=== PATIENT | male | born 1975 | race Caucasian/White ===

== ENCOUNTER 2021-04-25 09:59 | Outpatient (RCR) | payer BC, MEDICAID, SELFPAY | END 2021-09-26 10:24 | disposition home or self-care (01) | LOC: PT 09:59 | PROVIDERS: Visit Provider Internal Medicine | DX: J44.9 Chronic obstructive pulmonary disease, unspecified (principal) ==

== ENCOUNTER → 2021-08-23 08:04 | Outpatient (CLI) | payer BC, MEDICAID, SELFPAY ==
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
== END ==
PROVIDERS: PCP Nurse Practitioner Family; Visit Provider Nurse Practitioner Family
DX: R10.811 Right upper quadrant abdominal tenderness (principal)
CPT/HCPCS: 76705

== ENCOUNTER → 2021-10-08 10:38 | Outpatient (CLI) | payer BC, MEDICAID, SELFPAY | PROVIDERS: Visit Provider Surgery | DX: Z01.818 Encounter for other preprocedural examination (principal); Z11.52 Encounter for screening for COVID-19 | CPT/HCPCS: C9803; U0003; U0005 ==

== ENCOUNTER → 2021-10-16 10:13 | Outpatient (CLI) | payer BC, MEDICAID, SELFPAY ==
--- NOTE | 2021-10-16 10:16 | NM_ITS ---
PROCEDURE: NM HEPATOBILIARY WO PHARM CLINICAL INDICATION: EPIG PAIN COMPARISON: US US ABDOMEN LIMITED from 08/23/2021 TECHNIQUE: DOSE: 8.37 mCi technetium Choletec. Fatty meal was given with Ensure FINDINGS: Homogeneous activity is present within the hepatic parenchyma. Activity is present in the gallbladder by 5 minutes. Activity is present in the small bowel by 55 minutes. The gallbladder ejection fraction is calculated to be 48 percent. No pain reported with fatty meal. IMPRESSION: Unremarkable hepatic biliary scan with normal gallbladder ejection fraction. Dictated by: Charles Bennett MD 10/17/2021 08:15 Charles Bennett MD in [facility] 10/17/2021 08:15
--- NOTE | 2021-10-16 10:50 | HMH.ITSHM ---
Current Home Medications as stated by this patient Caleb Blanco or international representative. []PRILOSEC SIMBICORT ALBUTEROL
== END ==
PROVIDERS: PCP Nurse Practitioner Family; Visit Provider Surgery
DX: R10.11 Right upper quadrant pain (principal)
CPT/HCPCS: 78226; A9537

== ENCOUNTER 2021-10-30 17:04 | Emergency (ER) | payer OTHER, BC, MEDICAID, SELFPAY ==
[2021-10-30 17:40] VITALS: BMI 25.1
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
[2021-10-30 17:44] VITALS: BP 136/97; PULSE 92; RESP 18; TEMP 36.6; O2SAT 96; BMI 25.1
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
[2021-10-30 19:30] VITALS: BP 120/89; PULSE 74; RESP 16; TEMP 36.6; O2SAT 98
== END 2021-10-30 19:41 | disposition home or self-care (01) ==
PROVIDERS: Emergency Provider Emergency Medicine; PCP Nurse Practitioner Family
DX: S16.1XXA Strain of muscle, fascia and tendon at neck level, initial encounter (principal); S46.912A Strain of unspecified muscle, fascia and tendon at shoulder and upper arm level, left arm, initial encounter; S50.02XA Contusion of left elbow, initial encounter; V43.02XA Car driver injured in collision with other type car in nontraffic accident, initial encounter; Y92.410 Unspecified street and highway as the place of occurrence of the external cause
CPT/HCPCS: 71046; 72125; 73030; 73080; 99282

== ENCOUNTER 2023-02-12 17:00 | Outpatient (RCR) | payer MEDICARE, MEDICAID, SELFPAY | END 2023-02-12 17:05 | disposition home or self-care (01) | LOC: PT 17:00 | PROVIDERS: PCP Nurse Practitioner Family; Visit Provider Orthopaedic Surgery | DX: M89.8X1 Other specified disorders of bone, shoulder (principal) | CPT/HCPCS: 20561; 97010; 97014; 97035; 97110; 97140; 97163; G0283 ==